=== PATIENT | male | born 1945 | race Caucasian/White ===

== ENCOUNTER 2022-12-18 08:23 | Emergency (ER) | payer MEDICARE ==
[2022-12-18] MEDS ORDERED: Aspirin 325 MG TAB ONE (09:29)
[2022-12-18 10:07] LABS: #Eosinphils 0.2 10x3/uL (0.0-0.5); #Monocytes 0.6 10x3/uL (0.0-1.1); #Neutrophils 4.9 10x3/uL (1.5-8.4); %Basophils 0.6 % (0.0-2.0); %Eosinophils 3.2 % (0.0-6.0); %Lymphocytes 18.6 % (18.0-47.0); %Monocytes 8.1 % (0.0-10.0); %Neutrophils 69.2 % (40.0-75.0); Hemoglobin 13.4 g/dL (13.5-17.5); Mean Corpuscular HGB CONC 32.4 g/dL (32.0-36.0); Mean Corpuscular Hemoglobin 29.2 pg (27.0-33.0); Mean Platelet Volume 9.3 fl (7.4-10.4); Platelet Count 253 10x3/uL (150-450); RBC Distribution Width 13.2 % (11.5-14.5); Red Blood Cell (RBC) Count 4.59 10x6/uL (4.32-5.72); White Blood Cell (WBC) Count 7.1 10x3/uL (3.5-10.5)
[2022-12-18 10:16] LABS: INR-International Normal Ratio 0.9; PTT 24.9 sec (22.0-33.0); Prothrombin Time 10.2 sec (9.5-12.1)
[2022-12-18 10:20] LABS: ALT (SGPT) 11 U/L (8-55); AST (SGOT) 12 U/L (5-34); Albumin 3.8 g/dL (3.4-4.8); Alkaline Phosphatase 76 U/L (40-110); Anion Gap 12 mmol/L (10-20); BUN (Urea Nitrogen) 14 mg/dL (8.4-25.7); Bilirubin, Total 0.7 mg/dL (0.2-1.2); Calc. Creatinine Clearance 0 mL/min (70-130); Calcium 9.1 mg/dL (7.8-10.44); Carbon Dioxide 26 mmol/L (23-31); Chloride 106 mmol/L (98-107); Estimated GFR 87; Globulin 2.4 g/dL (2.4-3.5); Glucose 99 mg/dL (83-110); Potassium 3.9 mmol/L (3.5-5.1); Protein, Total 6.2 g/dL (5.8-8.1); Sodium 140 mmol/L (136-145)
== END 2022-12-18 15:08 | disposition home or self-care (01) ==
LOC: CSHERS 08:23
DX: G45.9 Transient cerebral ischemic attack, unspecified (principal); R26.89 Other abnormalities of gait and mobility; I10 Essential (primary) hypertension; E78.00 Pure hypercholesterolemia, unspecified
CPT/HCPCS: 36415; 70450; 70551; 71045; 80053; 84484; 85025; 85610; 85730; 93005

== ENCOUNTER 2023-05-03 08:28 | Emergency (ER) | payer MEDICARE ==
[2023-05-03] MEDS ORDERED: Fluorescein Opthalmic Strip ONE (08:58)
[2023-05-03] MEDS ORDERED: Tetracaine 0.5% PF 4 ML BOT ONE (08:58)
== END 2023-05-03 09:50 | disposition home or self-care (01) ==
LOC: CSHERS 08:28
DX: S05.01XA Injury of conjunctiva and corneal abrasion without foreign body, right eye, initial encounter (principal); E78.00 Pure hypercholesterolemia, unspecified; I10 Essential (primary) hypertension; X58.XXXA Exposure to other specified factors, initial encounter
CPT/HCPCS: 99283